=== PATIENT | female | born 2005 | race Asian ===

== ENCOUNTER 2023-04-06 13:24 | Emergency (ER) | payer OTHER ==
[2023-04-06 13:33] VITALS: BP 140/83
--- NOTE | 2023-04-06 13:33 | ED Physician Documentation ---
PD HPI ABD PAIN - Stated complaint Stated Complaint: ABD PAIN - Chief complaint Chief Complaint: Abd Pain - History obtained from History obtained from: Patient - Additional information Additional information: Otherwise healthy 17-year-old has had 5 days of watery diarrhea associated with bilateral side pain. Had some body aches at the outset without measured fevers. No sick contacts, recent travel, recent antibiotic use, or camping. No associated nausea. PD PAST MEDICAL HISTORY - Present Medications Home Medications: Ambulatory Orders Medication Instructions Recorded Confirmed Azithromycin [Zithromax] 2 tab PO DAILY #6 tablet 04/06/23 Loperamide [Imodium] 2 mg PO QID PRN #10 cap 04/06/23 - Allergies Allergies/Adverse Reactions: Allergies Allergy/AdvReac Type Severity Reaction Status Date / Time No Known Drug Allergies Allergy Verified 04/06/23 13:31 PD ED PE NORMAL - Vitals Vital signs reviewed: Yes - General General: Alert and oriented X 3, No acute distress - Abdomen Abdomen: Normal bowel sounds, Soft, Non tender - Neuro Neuro: Alert and oriented X 3, Normal speech Results - Vitals Vitals: Vital Signs - 24 hr 04/06/23 13:31 Temperature 36.7 C Heart Rate 92 Respiratory 20 Rate Blood Pressure 140/83 H O2 Saturation 100 Oxygen O2 Source Room air - Labs Labs: Laboratory Tests 04/06/23 04/06/23 04/06/23 13:39 13:39 13:57 WBC 5.7 RBC 4.81 Hgb 12.8 Hct 38.6 MCV 80.2 L MCH 26.6 L MCHC 33.2 RDW 12.3 Plt Count 259 MPV 8.5 Neut # (Auto) 3.8 Lymph # (Auto) 1.3 L [place] # (Auto) 0.4 Eos # (Auto) 0.1 Baso # (Auto) 0.0 Absolute Nucleated RBC 0.00 Nucleated RBC % 0.0 Sodium 141 Potassium 3.4 L Chloride 112 H Carbon Dioxide 24 Anion Gap 5.0 L BUN 10 Creatinine 0.6 Estimated GFR (MDRD) 129 Glucose 90 Calcium 8.5 Total Bilirubin 0.5 AST 19 ALT 16 Alkaline Phosphatase 35 L Total Protein 7.3 Albumin 3.9 Globulin 3.4 Albumin/Globulin Ratio 1.1 Stool Leukocytes, Qual POSITIVE PD Medical Decision Making - ED course ED course: 17-year-old with diarrhea and cramps. Positive fecal leukocytes with normal CBC and CMP. We will treat with azithromycin presuming bacterial cause given the above. Departure - Departure Disposition: 01 Home, Self Care Clinical Impression: Diarrhea Condition: Good Record reviewed to determine appropriate education?: Yes Instructions: ED Diarrhea Bacterial Prescriptions: Loperamide [Imodium] 2 mg PO QID PRN #10 cap PRN Reason: Diarrhea Azithromycin [Zithromax] 2 tab PO DAILY #6 tablet Comments: There are some studies on the stool pending, we will call if any of them require change in antibiotics with therapy. I sent your prescription electronically to [facility] in [place]. Return if worse, if new symptoms develop, or if not improved over the next couple of days. Be sure [place] discuss this emergency department [place] Forms: Activity restrictions Discharge Date/Time: 04/06/23 14:31
[2023-04-06 13:44] LABS: BASOPHILS % (AUTO) 0.4 %; EOSINOPHILS # (AUTO) 0.1 10^3/uL (0.0-0.7); EOSINOPHILS % (AUTO) 2.1 %; HCT - HEMATOCRIT 38.6 % (37.0-47.0); HGB - HEMOGLOBIN 12.8 g/dL (12.0-16.0); LYMPHOCYTES # (AUTO) 1.3 10^3/uL (1.5-3.5); LYMPHOCYTES % (AUTO) 22.8 %; MEAN CORPUSCULAR HEMOGLOBIN 26.6 pg (27.0-31.0); MEAN CORPUSCULAR HGB CONC 33.2 g/dL (32.0-36.0); MEAN CORPUSCULAR VOLUME 80.2 fL (81.0-99.0); MEAN PLATELET VOLUME 8.5 fL (7.9-10.8); MONOCYTES # (AUTO) 0.4 10^3/uL (0.0-1.0); MONOCYTES % (AUTO) 7.6 %; NEUTROPHILS # (AUTO) 3.8 10^3/uL (1.5-6.6); NEUTROPHILS % (AUTO) 66.9 %; PLT - PLATELET COUNT 259 10^3/uL (130-450); RED BLOOD COUNT 4.81 10^6/uL (4.20-5.40); RED CELL DISTRIBUTION WIDTH 12.3 % (12.0-15.0); WHITE BLOOD COUNT 5.7 x10^3/uL (4.8-10.8)
[2023-04-06 13:59] LABS: ALBUMIN 3.9 g/dL (3.2-5.5); ALBUMIN/GLOBULIN RATIO 1.1 (1.0-2.2); BILIRUBIN,TOTAL 0.5 mg/dL (0.2-1.0); CALCIUM 8.5 mg/dL (8.5-10.3); CREATININE 0.6 mg/dL (0.4-1.0); POTASSIUM 3.4 mmol/L (3.5-5.0); TOTAL PROTEIN 7.3 g/dL (6.7-8.2)
== END 2023-04-06 14:31 | disposition home or self-care (01) ==
LOC: ED 13:24
DX: R19.7 Diarrhea, unspecified (principal)
CPT/HCPCS: 36415; 80053; 83630; 85025; 87045; 87046; 87427; 87493; 99283; 99284